=== PATIENT | male | born 1995 | race Hispanic/Latino ===

== ENCOUNTER 2021-08-17 12:34 | Emergency (ER) | payer BC ==
[~2021-08-17] VITALS: Ht 172.7 cm; Wt 79.4 kg
--- NOTE | 2021-08-17 12:25 | ER.PDOC ---
General Stated Complaint: DEHYDRATION TRAVEL OUT OF US: No Time seen by MD: 12:25 Source: patient, EMS Exam Limitations: no limitations History of Present Illness Initial Comments Patient brought in by the EMS with complaints of not feeling well he since left work, complaining of nausea, vomiting, blacking out while driving from work, muscle cramping, as well as feeling numb all over. Reportedly started feeling bad after having breakfast at work, pulled over while driving and called 911. 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 En route to the emergency room patient was started on IV fluids. On arrival to the emergency room he is in no acute distress, continues to feel nauseous, numbness all over, as well as muscle cramping. Severity: moderate Modifying Factors: improves with other (nothing relieves his symptoms) Review of Systems Constitutional: denies chills, denies fever, denies malaise, denies weakness Respiratory: denies cough Cardiovascular: denies chest pain, denies palpitations Gastrointestinal: denies abdominal pain; nausea, vomiting Musculoskeletal: muscle stiffness (cramps ) Skin: denies rash Psychiatric/Neurological: anxiety; denies headache; numbness (generalized per pt) Hematologic/Lymphatic: denies easy bleeding All Other Systems: Reviewed and Negative Physical Exam General Appearance: No Apparent Distress, WD/WN, Anxious EENT: eyes nml inspection, nml ENT inspection (external) Neck: Non-Tender, Full Range of Motion, Supple, Normal Inspection Respiratory: chest non-tender, lungs clear, normal breath sounds, no respiratory distress, no accessory muscle use CVS: reg rate & rhythm, no murmur, no gallop, pulses nml, tachycardia Gastrointestinal: Normal Bowel Sounds, No Organomegaly, No Pulsatile Mass, Non Tender Extremities: Normal Range of Motion, Non-Tender, Normal Inspection, No Pedal Edema Neurologic/Psychiatric: foreign language interpreter II-XII NML as Tested, No Motor/Sensory Deficits, Alert, Oriented x 3 Skin: Normal Color, Warm/Dry Results/Orders Results/Orders Orders - LIZZIE MCMULLEN MD Cbc With Auto Diff (08/17/21 12:26) Comprehensive Metabolic Panel (08/17/21 12:26) Creatine Kinase (08/17/21 12:26) Creatine Kinase Mb (08/17/21 12:26) Ekg-Routine (08/17/21 12:26) Saline Lock (08/17/21 12:26) Troponin I High Sensitivity (08/17/21 12:26) Urinalysis (08/17/21 12:26) Drug Scrn Med W Confirmation (08/17/21 12:26) 0.9 % Sodium Chloride (Ns 1000ml) (08/17/21 12:26) Ringer's Solution,Lactated (Lactated Rin (08/17/21 12:31) Diazepam (Valium) (08/17/21 12:32) Ondansetron Hcl/Pf (Zofran) (08/17/21 12:32) 0.9 % Sodium Chloride (Ns 1000ml) (08/17/21 12:32) Ondansetron Hcl/Pf (Zofran) (08/17/21 12:32) Diazepam (Valium) (08/17/21 12:33) Potassium Chloride (Potassium Chloride) (08/17/21 13:34) Potassium Chloride (Potassium Chloride) (08/17/21 13:40) Vital Signs Date Time Temp Pulse Resp B/P (MAP) Pulse Ox O2 Delivery O2 Flow Rate FiO2 08/17/21 12:26 98.9 100 20 100 08/17/21 12:26 98.9 100 20 145/76 (99) 100 Room Air* 0 21 08/17/21 12:26 98.9 100 20 Administered Medications Medications (Trade) Dose Ordered Sig/Steffi Route PRN Reason Start Time Stop Time Status Last Admin Dose Admin Diazepam (Valium) 5 mg OT STAT IV 08/17/21 12:32 08/17/21 12:33 DC 08/17/21 12:40 5 MG Ondansetron HCl (Zofran) 4 mg OT STAT IV 08/17/21 12:32 08/17/21 12:33 DC 08/17/21 12:40 4 MG Potassium Chloride (Potassium Chloride) 40 meq OT STAT PO 08/17/21 13:34 08/17/21 13:37 DC 08/17/21 13:43 40 MEQ Sodium Chloride 1,000 ml @ 999 mls/hr Q1H1M STAT IV 08/17/21 12:26 08/17/21 13:27 DC 08/17/21 12:40 999 MLS/HR Laboratory Tests Test 08/17/21 12:32 08/17/21 13:15 White Blood Count 13.1 10^3/uL (4.5-11.0) H Red Blood Count 4.51 10^6/uL (4.50-5.90) Hemoglobin 14.5 g/dL (13.9-16.3) Hematocrit 42.6 % (37.0-53.0) Mean Corpuscular Volume 94.5 fL (78-100) Mean Corpuscular Hemoglobin 32.2 pg (26-34) Mean Corpuscular Hemoglobin Concent 34.0 g/dL (33-36.5) Red Cell Distribution Width 11.8 % (11.5-14.5) Platelet Count 248 10^3/uL (150-400) Mean Platelet Volume 10.7 fL (7.8-11.0) Neutrophils (%) (Auto) 74.0 % (41.0-85.0) Lymphocytes (%) (Auto) 18.6 % (24.0-44.0) L Monocytes (%) (Auto) 6.9 % (5.0-12.0) Neutrophils # (Auto) 9.7 10^3/uL (1.8-7.7) H Lymphocytes # (Auto) 2.44 10^3/uL1 (1.0-4.8) Monocytes # (Auto) 0.9 10^3/uL (0.3-0.8) H Absolute Immature Granulocyte (auto 0.02 10^3 u/L (0-2) Absolute Eosinophils (auto) 0.0 10^3/uL (0.0-0.2) Immature Granulocytes % 0.20 % (0.00-0.50) Eosinophils % 0.1 % (0.0-5.0) Basophils % 0.2 % (0.0-0.2) Basophils # 0.0 10^3/uL (0.0-0.1) Urine Collection Type RANDOM Urine Color YELLOW Urine Appearance CLEAR Urine Bilirubin NEGATIVE (NEGATIVE) Urine Ketones 2+ (NEGATIVE) H Urine Specific [place] 1.020 (1.005-1.030) Urine pH 6.0 (4.5-8.0) Urine Protein NEGATIVE (NEGATIVE) Urine Urobilinogen 0.2 E.U./dL (0.2) Urine Nitrate NEGATIVE (NEGATIVE) Urine Leukocyte Esterase TRACE (NEGATIVE) H Urine Glucose (Auto)(UA) NEGATIVE (NEGATIVE) Urine Blood TRACE-LYSED (NEGATIVE) H Sodium Level 140 mmol/L (132-145) Potassium Level 2.9 mmol/L (3.6-5.2) L Chloride Level 102.0 mmol/L (96-109) Carbon Dioxide Level 18.1 mmol/L (20.0-32) L Anion Gap 22.8 Blood Urea Nitrogen 15 mg/dL (7-18) Creatinine 1.28 mg/dL (0.59-1.40) Estimated GFR () 82.9 (>/=60) Est GFR (CKD-EPI)(Non-Afr Mong[place]ian) 68.5 (>/=60) BUN/Creatinine Ratio 11.0 Glucose Level 144 mg/dL (70-110) H Calcium Level 9.7 mg/dL (8.4-10.5) Total Bilirubin 0.9 mg/dL (0.2-1.0) Aspartate Amino Transferase (AST) 26 U/L (0-35) Alanine Aminotransferase (ALT) 68 U/L (12-78) Alkaline Phosphatase 89 U/L (50-136) Total Creatine Kinase 150 U/L (39-308) Creatine Kinase MB 1.7 ng/mL (0.5-3.6) Troponin I High Sensitivity 6 ng/L (0-75) Total Protein 8.5 g/dL (6.4-8.2) H Albumin 4.8 g/dL (3.4-5.0) Globulin 3.7 Albumin/Globulin Ratio 1.297 Urine Opiates Screen NEGATIVE (c/o300ng/mL) Urine Methadone Screen NEGATIVE (c/o300ng/mL) Urine Barbiturates Screen NEGATIVE (c/o200ng/mL) Urine Phencyclidine Screen NEGATIVE (c/o 25ng/mL) Ur Amphetamine/Methamphetamine PRESUMPTIVE POSITIVE Urine MDMA Screen (Ecstasy) PRESUMPTIVE POSITIVE Urine Benzodiazepines Screen NEGATIVE (c/o200ng/mL) Urine Cocaine Metabolite Screen NEGATIVE (c/o300ng/mL) Ur Tetrahydrocannabinol (THC) Scrn NEGATIVE (c/o 50ng/mL) Progress Progress Patient at this time admits to feeling a lot better, his blood pressure continues to be elevated. He is advised to discontinue the use of ecstasy / methamphetamine, as well as adequate BP control. ER DEPART Departure Time of Disposition: 13:45 Disposition: 01 HOME / SELF CARE / HOMELESS Impression: Primary Impression: Adverse effect of unspecified drugs, medicaments and biological substances, initial encounter Additional Impressions: Substance abuse Hypokalemia Elevated BP without diagnosis of hypertension Condition: Stable Duration or Time Spent with Pa: 25 mins Return to Work/School Can a patient return to work?: Yes (tomorrow) Problem Qualifiers LIZZIE MCMULLEN MD Aug 17, 2021 12:25
[2021-08-17 12:26] VITALS: BP 145/76
[~2021-08-17 12:34] MED LIST: LACTATED RINGERS 1,000 ML ONE; NS 1000ML 1,000 ML IV STA; NS 1000ML 1,000 ML ONE; VALIUM IV STA; VALIUM ONE; ZOFRAN IV STA; ZOFRAN ONE
[2021-08-17 12:43] LABS: BASOPHIL % 0.2 % (0.0-0.2); EOSINOPHIL % 0.1 % (0.0-5.0); LYMPHOCYTES # 2.44 10^3/uL1 (1.0-4.8); LYMPHOCYTES % 18.6 % (24.0-44.0); MEAN CORP HGB 32.2 pg (26-34); MONOCYTES # 0.9 10^3/uL (0.3-0.8); MONOCYTES % 6.9 % (5.0-12.0); NEUTROPHIL # 9.7 10^3/uL (1.8-7.7); PLATELET COUNT 248 10^3/uL (150-400); RED CELL DISTRIBUTION WIDTH 11.8 % (11.5-14.5)
--- NOTE | 2021-08-17 12:43 | NUR ---
ARRIVAL PT PRESENTS TO THE ED VIA EMS WITH C/O POSSIBLE DEHYDRATION/HEAT EXHAUSTION. PT STATED THAT HE WENT TO WORK AND ATE BREAKFAST AT 0900, HE STATED HE BEGAN TO VOMIT, HE STATED HE LEFT WORK AND WAS DRIVING HOME AND BEGAN TO BLACKOUT, HE STATED HE PULLED OVER AND CALLED 911, HE COMPLAINS OF NAUSEA, WEAKNESS, AND HOA ARMS.UPON ASSESSMENT PT IS PALE TO COLOR, DIAPHORETIC, TACHYCARDIC. PT VITALS OBTAINED, PT IS STABLE, NOTIFIED OF PT ARRIVAL.
[2021-08-17 13:15] LABS: CARBON DIOXIDE 18.1 mmol/L (20.0-32)
[2021-08-17 13:23] LABS: BILIRUBIN,URINE NEGATIVE (NEGATIVE); UROBILINOGEN,URINE 0.2 E.U./dL (0.2)
[2021-08-17] MEDS ORDERED: POTASSIUM CHLORIDE PO STA (13:34)
[2021-08-17] MEDS ORDERED: POTASSIUM CHLORIDE ONE (13:40)
--- NOTE | 2021-08-17 17:51 | PCM.EKG ---
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
== END 2021-08-17 14:01 | disposition home or self-care (01) ==
LOC: EDBD 12:34 → ER 12:34
DX: E87.6 Hypokalemia (principal); T50.905A Adverse effect of unspecified drugs, medicaments and biological substances, initial encounter; E86.0 Dehydration; R03.0 Elevated blood-pressure reading, without diagnosis of hypertension; Y92.89 Other specified places as the place of occurrence of the external cause
CPT/HCPCS: 36415; 80053; 80307; 81001; 82550; 82553; 84484; 85025; 93005; 96361; 96374; 96375; 99284; J2405; J3360; J7030; J7120